=== PATIENT | male | born 1985 | race Two or more races ===

== ENCOUNTER 2018-12-09 12:25 | Emergency (ER) | payer SELFPAY ==
[~2018-12-09] VITALS: Ht 172.7 cm; Wt 74.8 kg
[2018-12-09] MEDS ORDERED: ONDANSETRON HCL/PF 4 MG/2 ML VIAL ONE (12:49)
--- NOTE | 2018-12-09 12:50 | NUR ---
BIB [facility] 89 FROM HOME,INTOXICATED PER BROTHER AFTER BINGING ALCOHOL X 3 DAYS. KNOWN ALCOHOLIC. PT RESPONDS TO PAINFUL STIMULI, EYES DILATED. SKIN INTACT. NO ACUTE SIGNS OF DISTRESS NOTED. PLACED IN GOWN AND HOOKED TO MONITOR. SEEN BY MARYSE BRANDON. VERBAL ORDERS GIVEN. WILL CONT TO MONITOR.
[2018-12-09] MEDS ORDERED: ONDANSETRON HCL/PF 4 MG/2 ML VIAL IVP ONE (13:00)
[2018-12-09] MEDS ORDERED: IV NS 0.9% 1,000 ML BAG IV ONE (13:00)
--- NOTE | 2018-12-09 13:04 | NUR ---
IV ACCESS OBTAINED. MEDS GIVEN AND IVF INFUSING. PLACED ON 2L O2 VIA NC. GREENHOUSE SPECIALIST AT BEDSIDE TO WRAP SALINE LOCK TO PREVENT PT FROM PULLING IV OUT. WILL CONT TO MONITOR.
--- NOTE | 2018-12-09 14:05 | NUR ---
PT PLACED ON 2-PT RESTRAINTS PER PRODUCTION DRILLING MACHINE OPERATOR DUE TO STUMBLING OUT OF GURNEY, AT RISK FOR INJURY. CMS INTACT. WILL CONT TO MONITOR PER PROTOCOL
[2018-12-09] MEDS ORDERED: HALOPERIDOL LACTATE INJ 5 MG/ML VIAL ONE (14:14)
[2018-12-09] MEDS ORDERED: diphenhydrAMINE HCL 50 MG/ML VIAL ONE (14:14)
[2018-12-09] MEDS ORDERED: HALOPERIDOL LACTATE INJ 5 MG/ML VIAL IM ONE (14:30)
[2018-12-09] MEDS ORDERED: diphenhydrAMINE HCL 50 MG/ML VIAL IM ONE (14:30)
--- NOTE | 2018-12-09 14:57 | NUR ---
PT ASKING TO URINATE, BUT ALREADY WET HIS PANTS. OFFERED TO HELP HIM WITH URINAL, BUT PT REFUSED. CONTINUES TO BE ALTERED. WILL CONT TO MONITOR
--- NOTE | 2018-12-09 15:45 | NUR ---
PT CONTINUES TO BE RESTLESS. CMS INTACT. PT TURNED TO RIGHT SIDE. WILL CONT TO MONITOR.
--- NOTE | 2018-12-09 16:19 | NUR ---
PT SLEEPING IN BED. VSS. WILL CONT TO MONITOR.
--- NOTE | 2018-12-09 18:00 | NUR ---
PT STILL ASLEEP. VSS. NO COMPLAINTS AT THIS TIME. CMS INTACT. WILL CONT TO MONITOR.
--- NOTE | 2018-12-09 19:23 | NUR ---
RESTRAINTS DC'D. ASSISTED TO RESTROOM. PT MORE COHERENT AND HAS STEADY GAIT. WALLPAPER CLEANER AWARE
--- NOTE | 2018-12-09 20:01 | NUR ---
IV removed. Catheter intact and site benign. Pressure and 4x4 applied to site. No bleeding noted.Patient discharged to home in stable condition. Written and verbal after care instructions given. Patient verbalizes understanding of instruction.
[2018-12-09 21:14] VITALS: BP 112/68
== END 2018-12-09 20:01 | disposition home or self-care (01) ==
LOC: ER 12:28
DX: F10.129 Alcohol abuse with intoxication, unspecified (principal); Y90.9 Presence of alcohol in blood, level not specified
CPT/HCPCS: 96372 ×2; 96374; 99283; J1200; J1630; J2405; J7030